=== PATIENT | female | born 2000 | race Caucasian/White ===

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

== ENCOUNTER 2020-01-08 07:30 | Day surgery (SDC) | payer OTHER ==
[~2020-01-08] VITALS: Ht 177.8 cm; Wt 99.8 kg
[~2020-01-08 07:30] MED LIST changes: +BACTRIM DS TAB1 EACH PO; +METHYLPHENIDATE54 MG PO; +NORCO 5-325 TA1 EACH PO
--- NOTE | 2020-01-08 09:53 | NUR ---
01/08/20 0953 Dione Love 0941- PT TO PACU IN SUPINE POSITION WITH ORAL AIRWAY IN PLACE. DOES NOT RESPOND TO VERBAL OR TACTILE STIMULI. BREATHING EASY AND UNLABORED. SPO2 >95% ON 6 L O2 VIA SIMPLE MASK. 0950- PT OPENS EYES AND SPITS OUT ORAL AIRWAY. BREATHING EASY AND UNLABORED. SPO2 >95% ON 6 L O2 VIA SIMPLE MASK. PT MOANING AND MUMBLING AND LAUGHING, BUT QUICKLY FALLS BACK TO SLEEP. VSS.
[2020-01-08] MEDS ORDERED: OXYCODON-ACETA1 EAC2 PO (09:58)
[2020-01-08] MEDS ORDERED: ACETAMINOPHEN500 MG PO (09:58)
[2020-01-08] MEDS ORDERED: IBUPROFEN600 MG PO (09:58)
--- NOTE | 2020-01-08 10:44 | NUR ---
ICED WATER GIVEN. CALL LIGHT WITHIN REACH. MOTHER AT THE BEDSIDE. PATIENT SIPS WATER AND TOLERATES THAT WELL.
--- NOTE | 2020-01-08 11:38 | NUR ---
APPLESAUCE GIVEN. PATIENT IS EATING AND DRINKING AND TOLERATING THAT WELL.
--- NOTE | 2020-01-08 12:36 | NUR ---
PATIENT IS UP TO THE BATHROOM. SHE IS STEADY ON HER FEET AND DENIES DIZZINESS. PATIENT REPORTS SUCCESSFUL VOID AND IS BACK IN HER ROOM. DISCHARGE INSTRUCTIONS GIVEN IN PRESENCE OF HER MOTHER AND BOTH VERBALIZE UNDERSTANDING. PATIENT IS GETTING DRESSED IN THE PRESENCE OF HER MOTHER.
--- NOTE | 2020-01-08 13:04 | NUR ---
LE 1245: PATIENT TRANSFERS HERSELF TO WHEELCHAIR AND THEN TO PERSONAL VEHICLE AND SHE TOLERATES THAT WELL.
--- NOTE | 2020-01-12 08:25 | OR ---
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 POSTOPERATIVE DIAGNOSIS: Pilonidal disease of the intermammary space (presternal space). PROCEDURES: 1. Excision of intermammary pilonidal disease. 2. Layered closure. ANESTHESIA: General, LMA; Hermila Moran CRNA and local 10 mL of 0.25% Marcaine with epinephrine. INDICATIONS: This 19-year-old obese, hirsute, white young woman has noted chronic recurrent inflammation, infection, and drainage between the breast. She is referred by Dr. Villarreal for further evaluation. She was seen in the emergency room on December 15 and December 16 for this. The problem has been going on for over a year. The area has had bleeding and draining purulent material. Examination shows pilonidal disease between the breasts in the intramammary crease. Though quite rare, this is a well known phenomenon. She is offered intermammary pilonidal excision. Primary closure versus delayed wound closure will be decided upon that operation. Risks of bleeding, infection, recurrent disease and so forth were all reviewed in detail. She understands and wished to proceed. FINDINGS: Typical pilonidal disease in an atypical position was noted -- the intermammary crease. Probing of a typical sinus with a lacrimal duct probe showed it did connect to the deep soft tissue. Wide and deep excision were undertaken through normal intramammary tissue. Primary closure was deemed most advisable. There was no sign of actual purulence. The tissue once excised was bivalved and examined and found not to have any actual nest of hairs, only chronic granulation tissue. DESCRIPTION OF PROCEDURE: The patient was brought to the operating room, given a general LMA type anesthetic. Preoperative antibiotic Ancef was given. Photographs were taken of the intermammary space. The area was clipped as she was rather hirsute in this area. A pilonidal sinus Electronically Signed By: WILTON LBEVINS MD 01/12/20 0825 PATIENT NAME: PRITESH GONZALEZ OPERATIVE REPORT DATE OF : 00 REPORT #: [id number] PHYSICIAN: WILTON BLEVINS MD PCP: ALVINO VILLARREAL MD REPORT IS CONFIDENTIAL AND NOT TO BE RELEASED WITHOUT AUTHORIZATION [facility] [address] [place] [address] Signed tract was probed with a lacrimal duct probe, confirming suspicion of pilonidal disease in the intermammary space. Elliptical incision of the disease was undertaken vertically oriented with a #15 blade. Electrocautery was used to further excise tissue through the subcutaneous tissue down to the presternal space. Complete excision was undertaken. The specimen was bivalved and examined, and although there was no sign of nest of hairs, there was chronic granulation tissue. Hemostasis was assured with electrocautery. The wound was then closed with interrupted 2-0 Vicryl in two layers including the deep dermis and a running subcuticular of the skin of 3-0 PDS. Steri-Strips were applied as was a silver sponge dressing. The patient tolerated procedure well. Blood loss was minimal. Wilton Blevins MD JM/MODL /[id number] cc: Alvino Villarreal MD Copies: ALVINO VILLARREAL MD ~ Electronically Signed By: WILTON BLEVINS MD 01/12/20 0825 PATIENT NAME: PRITESH GONZALEZ OPERATIVE REPORT DATE OF : 00 REPORT #: [id number] PHYSICIAN: WILTON BLEVINS MD PCP: ALVINO VILLARREAL MD REPORT IS CONFIDENTIAL AND NOT TO BE RELEASED WITHOUT AUTHORIZATION
--- NOTE | 2020-01-12 17:04 | PATH ---
[facility] [address] [place], [place] [address] Signed SPECIMEN(S): A INTERMAMMARY FOLD SPECIMEN SOURCE: A. INTERMAMMARY FOLD CLINICAL HISTORY: Pilonidal disease, intermammary fold; pilonidal cystectomy, chest. FINAL PATHOLOGIC DIAGNOSIS: Intermammary fold, excision: - [place] skin and subcutaneous tissue with an intradermal follicle/epidermal inclusion cyst with associated mixed inflammation and focal slight foreign body type reaction. - Negative for atypical features. JVR:cml:C2NR MICROSCOPIC EXAMINATION: Histologic sections of all submitted blocks are examined by light microscopy. These findings, together with the gross examination, support the pathologic diagnosis. GROSS DESCRIPTION: The specimen, labeled "SHYAM, A.," and designated on the requisition "intermammary fold 'pilonidal disease'," is received in formalin and consists of a hernandez elliptical skin with deep subcutaneous tissue measuring 5.5 x 1.3 x 3.8 cm. The cutaneous surface contains a 2.7 x 1.0 cm ulceration measuring up to 0.3 cm to the nearest margin. The specimen is serially sectioned revealing a fatty subcutaneous surface with minimal clot or fibrous fragments. Airplane Cabin Attendant sections are submitted in cassettes (A1-A2). AT (under the direct supervision of a pathologist) The Gross Description was prepared using a voice recognition system. The report was reviewed for accuracy; however, sound-alike word errors, addition and/or deletions may occur. If there is any question about this report, please contact Client Services. PERFORMING LABORATORY: The technical component was performed by [facility] [address] (Hat Copyist: Kary Matthew MD; CLIA# [id number]). Professional interpretation was performed by [facility] PATIENT NAME: PRITESH GONZALEZ PATHOLOGY DATE OF : 00 REPORT #: [id number] PHYSICIAN: [facility] PCP: ALVINO VILLARREAL MD REPORT IS CONFIDENTIAL AND NOT TO BE RELEASED WITHOUT AUTHORIZATION [address] [address] [place] [address] (Hat Copyist: Jose Angel De Leon M.D.). Diagnostician: Jose Angel De Leon MD Pathologist Electronically Signed 01/12/2020 Copies: ~ PATIENT NAME: PRITESH GONZALEZ PATHOLOGY DATE OF : 00 REPORT #: [id number] PHYSICIAN: [facility] PCP: ALVINO VILLARREAL MD REPORT IS CONFIDENTIAL AND NOT TO BE RELEASED WITHOUT AUTHORIZATION
== END 2020-01-08 12:45 | disposition home or self-care (01) ==
LOC: DS 07:30
PROVIDERS: Surgery
PROC: 0JB90ZZ Excision of Buttock Subcutaneous Tissue and Fascia, Open Approach (ICD-10-PCS; principal; 2020-01-08 08:15)
DX: L98.8 Other specified disorders of the skin and subcutaneous tissue (principal); J45.909 Unspecified asthma, uncomplicated; F90.9 Attention-deficit hyperactivity disorder, unspecified type; E66.01 Morbid (severe) obesity due to excess calories; Z68.31 Body mass index [BMI] 31.0-31.9, adult; Z79.899 Other long term (current) drug therapy
CPT/HCPCS: 00400; J0595; J0690; J1100; J1644; J1885; J2001; J2250; J2405; J2704; J7121

== ENCOUNTER 2020-02-10 18:20 | Emergency (ER) | payer OTHER ==
[~2020-02-10] VITALS: Ht 177.8 cm; Wt 99.8 kg
[~2020-02-10 18:20] MED LIST changes: +ACETAMINOPHEN500 MG PO; +IBUPROFEN600 MG PO; +OXYCODON-ACETA1 EAC2 PO
--- OUTSIDE RECORDS SUMMARY | 2020-02-10 18:22 | XMS ---
PreManage Notification: PRITESH GONZALEZ Security Stone [employer] Sawyer Events No recent Security Events currently on file CRITERIA MET - PDMP CARE PROVIDERS ALVINO VILLARREAL BILL Pediatrics 12/18/2019-Current PHONE: [phone] Sebastian has no Care Guidelines for this patient. EJennifer VISIT COUNT (12 MO.) [address] [place] [address] SARAH [place]leon TOTAL 5 NOTE: Visits indicate total known visits. ED/UCC VISIT TRACKING (12 MO.) 02/10/2020 18:20 [facility] [place] TYPE: Emergency COMPLAINT: - ABDOMENAL PAIN 12/17/2019 11:43 [facility] [place] TYPE: Emergency COMPLAINT: - SKIN ISSUE ON CHEST DIAGNOSES: - Other follicular cysts of the skin and subcutaneous tissue - Follicular cyst of the skin and subcutaneous tissue, unspecif 12/16/2019 16:47 [facility] [place] TYPE: Emergency COMPLAINT: - POSSIBLE CYST DIAGNOSES: - Pyothorax without fistula - Local infection of the skin and subcutaneous tissue, unspecif 10/30/2019 13:27 [facility] [place] TYPE: Emergency DIAGNOSES: - Heat exhaustion, unspecified, initial encounter - HEAT STROKE 06/19/2019 07:45 [facility] [place] TYPE: Emergency COMPLAINT: - SHOULDER INJURY DIAGNOSES: - Pain in left shoulder INPATIENT VISIT TRACKING (12 MO.) No inpatient visits to display in this time frame [email or web address]
[2020-02-10] MEDS ORDERED: PROTONIX40 MG PO (20:21)
== END 2020-02-10 20:32 | disposition home or self-care (01) ==
LOC: ED 18:20
DX: R10.13 Epigastric pain (principal); R10.10 Upper abdominal pain, unspecified; Z79.899 Other long term (current) drug therapy
CPT/HCPCS: 80053; 81001; 83690; 83735; 84703; 85025; 99284

== ENCOUNTER 2020-02-16 14:39 | Emergency (ER) | payer OTHER ==
[~2020-02-16] VITALS: Ht 177.8 cm; Wt 99.8 kg
--- OUTSIDE RECORDS SUMMARY | ~2020-02-16 | XMS | Clinical Summary ---
Demographics + + + | Address | [address] | | | [place] [address] | + + + | Home Phone | | + + + | Preferred Language | Unknown | + + + | Marital Status | Single | + + + | Lutheran Affiliation | Unknown | + + + | Race | White | + + + | Ethnic Group | Not or | + + + Author + + + | Author | [facility] | | | and [place] | + + + | Organization | [facility] | | | and [place] | + + + | Address | Unknown | + + + | Phone | Unavailable | + + + Care Team Providers + +------+ + | Care Screed Operator Name | Role | Phone | + +------+ + PCP | Unavailable | + +------+ + Allergies Not on File Medications Not on file Active Problems Not on file Social History + +-------+ +--------+------+ | Tobacco Use | Types | Packs/Day | Years | Date | | | | | Used | | + +-------+ +--------+------+ | Never Assessed | | | | | + +-------+ +--------+------+ + + + | Sex Assigned at | Date Recorded | | | | + + + | Not on file | | + + + Last Filed Vital Signs Not on file Plan of Treatment + + +-------+ + | Health Maintenance | Due Date | Last | Comments | | | | Done | | + + +-------+ + | Well Child Check | | | | | | 4 | | | + + +-------+ + | Vaccine: HPV (1 - | | | | | 2-dose series) | 2 | | | + + +-------+ + | Vaccine: | | | | | Dtap/Tdap/Td (1 - | 0 | | | | Tdap) | | | | + + +-------+ + | Vaccine: Influenza | | | | | (#1) | 0 | | | + + +-------+ + Results Not on filefrom Last 3 Months"
--- OUTSIDE RECORDS SUMMARY | ~2020-02-16 | XMS | Encounter Summary ---
Demographics + + + | Address | [address] | | | [place] [address] | + + + | Home Phone | | + + + | Preferred Language | Unknown | + + + | Marital Status | Single | + + + | Mormonism Affiliation | Unknown | + + + | Race | White | + + + | Ethnic Group | Not or | + + + Author + + + | Author | [facility] | + + + | Organization | [facility] | + + + | Address | Unknown | + + + | Phone | Unavailable | + + + Support + + + + + | Name | Relationship | Address | Phone | + + + + + | Nu Greer | ECON | [address] | | | | | [place] | | | | | [address] | | + + + + + | Reid Greer | ECON | Unknown | | + + + + + Care Team Providers + +------+ + | Care Radio Technician Name | Role | Phone | + [...] | | Cardiology at | MD [address] [facility] | | | | | Chance | [facility] | | | | | [facility] | [place], [place] | | | | | [address] | [address] | | | | | Chance | [phone] | | | | | [facility] | | | | | | 7th Floor [place], | | | | | | [place] [address] | | | | | | [phone] | | | +--------+ + + + [...] PE letter faxed to school: Brittnee Alejo [phone] elephone Encounter - Katie Schulz - 05/18/2015 1:32 PM PSTSchool needs to know if there are any activity restric tions before patient can play basketball. Mom states she has no activity restrictions. Katrina zhao send a letter to verify this. Fax to school: Brittnee Alejo [phone] signed by Katie Schulz at 05/18/2015 1 :34 PM PSTdocumented in this encounter Plan of Treatment Not on filedocumented as of this encounter Visit Diagnoses Not on filedocumented in this encounter"
--- OUTSIDE RECORDS SUMMARY | ~2020-02-16 | XMS | Clinical Summary ---
Demographics + + + | Address | [address] | | | [place] [address] | + + + | Home Phone [...] [place] | | | | | [address] | | + + + + + | Reid Greer | ECON | Unknown | + | + + + + + Care Team Providers + +------+ + | Care Hr Coordinator Name | Role | Phone | + +------+ + | Olive Sofia MD | PCP | | + +------+ + Source Comments RITA is fully live on both [facility] and [facility] InPatient.[facility] Allergies Not on File Medications + + [...] | [employer] | FIRST | [id number] | Effect | | | PPO | [...] | 1976 | [phone] | [place] [address] | | | jesus | | | 5 (Home) | | + +--------+ +--------+ + +
--- OUTSIDE RECORDS SUMMARY | ~2020-02-16 | XMS | Encounter Summary ---
Demographics + + + | Address | [address] | | | [place] [address] | + + + | Home Phone | | + + + | Preferred Language | Unknown | + + + | Marital Status | Single | + + + | Jain Affiliation | Unknown | + + + | Race | White | + + + | Ethnic Group | Not or | + + + Author + + + | Author | [facility] | | | and [place] | + + + | Organization | [facility] | | | and [place] | + + + | Address | Unknown | + + + | Phone | Unavailable | + + + Care Team Providers + +------+ + | Care Studio Sales Associate Name | Role | Phone | + +------+ + PCP | Unavailable | + +------+ + Encounter Details +--------+ + + + + | Date | Type | Department | Care Team | Description | +--------+ + + + + | 08/04/ | Hospital | [facility] | Trent Nazario | | | 2015 - | Encounter | HOSPITAL THERAPY | MD [address] | | | | | [address] | [facility] | | | 09/03/ | | [place], [place] | [place] [address] | | | 2014 | | [address] | [phone] | | | | | [phone] | | | +--------+ + + + [...] TREATMENT: Patient approved with authorization from insurance [facility] 09/03/2014: however, the patient moved to [place], and will seek medical services at that location. No progress report in 1 physical therapy session. PLAN: Discharge from physical therapy treatment. The patient moved to [place], and will [place] [facility] there. Thank you for this [...] lumbar and coccyx pain. Rate pain 0-1/10. senior care accomplished in 12 weeks: Patient to return [...]
--- OUTSIDE RECORDS SUMMARY | ~2020-02-16 | XMS | Encounter Summary ---
Demographics + + + | Address | [address] | | | [place] [address] | + + + | Home Phone | | + + + | Preferred Language | Unknown | + + + | Marital Status | Single | + + + | Latter-Day Affiliation | Unknown | + + + | Race | White | + + + | Ethnic Group | Not or | + + + Author + + + | Author | [facility] | + + + | Organization | [facility] | + + + | Address | Unknown | + + + | Phone | Unavailable | + + + Support + + + + + | Name | Relationship | Address | Phone | + + + + + | Nu Greer | ECON | [address] | | | | | [place] | | | | | [address] | | + + + + + | Reid Greer | ECON | Unknown | | + + + + + Care Team Providers + +------+ + | Care Power Reactor Operator Name | Role | Phone | [...] | | | | | unspecified | PEST CONTROL WORKER [facility]PER PEDS | [address] | | | | | Syncope | SPECIALISTS | [address] | | | | | and collapse | OF [place] | Chance | | | | | | [address] | Children's | | | | | | [address] | | | | | | [place], | Floor | | | | | | [place] [address] | [place], [place] | | | | | | Phone: | [address] | | | | | | [phone] | Phone: | | | | | | Fax: | [phone] | | | | | | [phone] | Fax: | | | | | | | [phone] | +--------+--------+ + + + + Encounter Details +--------+---------+ + + + | Date | Type | Department | Care Team | Description | +--------+---------+ + + + | 04/12/ | Office | Pediatric | Wanda Perez, | Vasovagal syncope | | 2015 | Visit | Cardiology at | [address] | (Primary Dx) | | | | [place] | [facility] | | | | | [facility] | [place], [place] | | | | | [address] | [address] | | | | | Chance | [phone] | | | | | [facility] | | | | | | [address] [facility], | | | | | | [place] [address] | | | | | | [phone] | | | +--------+---------+ + + + [...] "Orthostatic Hypotension: Care Instructions", log into your CineMallTec LLChart acc ount at [email or web address]. You can enter V984 in the Stop Being Watched Library" search box . Not on CineMallTec LLChart? Review the CineMallTec LLChart section of your After Visit Summary for directions on ho w to sign up. 6740-6080 [employer]. Care instructions adapted under license by [facility]. This care instruction is for use with your licensed healthcar e professional. If you have questions about a medical condition or this instruction, always ask your healthcare professional. [employer] disclaims any warranty or liabili ty for your use of this information. Content Version: [id number]; Current as of: July 03, 2014 documented in this encounter Progress Notes Wanda Perez MD - 04/12/2015 3:41 PM PSTFormatting of this note might be different f rom the original. Patient name: El Fairbanks Date of : 2000 [facility] 04/12/2015 El Fairbanks is a 14 year 4 month female who was seen in consultation on 04/12/20 15 in the pediatric cardiology clinic at [facility]. She was referred b Marita Cohen for the evaluation of syncope. She [...] and discussed the diagnosis at length with e family I have not set up a return visit for El. Should she develop new cardiovascular signs or worsening symptoms, I would be happy to see her again in the future. Please feel free to contact me with any questions regarding El's visit. MD Wanda Felix MD PEDIATRIC CARDIOLOGY AT [address] Mailcode: [address] [address] I spent 45 minutes, face to face, with the patient and their family, more than 50% of which was counseling and coordination of care. We discussed Prognosis and risks of the condition. Level of Service: New patient 45min face to face, [id number] documented in this encounter Plan of Treatment Not on filedocumented as of this encounter Visit Diagnoses + + | Diagnosis | + + | Vasovagal syncope - Primary Syncope and collapse | + + documented in this encounter
--- OUTSIDE RECORDS SUMMARY | ~2020-02-16 | XMS ---
Demographics + + + | Address | [address] | | | [place] [address] | + + + | Home Phone | | + + + | Preferred Language | Unknown | + + + | Marital Status | Never | + + + | Adventist Affiliation | Unknown | + + + | Race | White | + + + | Ethnic Group | Not or | + + + Author + + + | Author | [facility] | + + + | Organization | [facility] | + + + | Address | [address] | | | [place] [address] | + + + | Phone | | + + + Care Team Providers + + + + | Care Trial Management Associate Name | Role | Phone | + + + + | Olive Sofia PCP | | + + + + Unavailable | Unavailable | + + + + | [place] Olive L | PreferredProvider | | + + + [...] + + | Concerta 36 mg | 01/27/2020 | 02/26/2020 | take 2 tablets | | | oral tablet | | [...] 10/24/2016 | + +--------+ + | Sleep disorder | Active | 10/24/2016 | + +--------+ [...] | | e | | +-----+-----+-----+-----+-----+-----+-----+-----+-----+----+-----+-----+-----+-----+ | 9/1 | 11: | 110 | 70 | 89 | 20 | 97 | 246 | 69 | | 36. | 2.3 | 97. | 97 | | 5/2 | 41: | | mm[ | {be | rpm | F | | in | | 327 | 307 | 7 % | % | | 020 | 00 | mm[ | Hg] | ats | | | lbs | | | 5 | m2 | | | | | AM | Hg] | | }/m | | | | | | kg/ | | | | | | | | | in | | | | | | m2 | | | | +-----+-----+-----+-----+-----+-----+-----+-----+-----+----+-----+-----+-----+-----+ | 7/2 | 11: | 120 | 70 | 76 | 20 | 97. | 251 | 69. | | 36. | 2.3 | 97. | 97 | | 0/2 | 26: | | mm[ | {be | rpm | 9 F | | 25 | | 80 | 6 | 9 % | % | | [...] | | | | | +-----+-----+-----+-----+-----+-----+-----+-----+-----+----+-----+-----+-----+-----+ | 1/1 [...] m2 | | | | +-----+-----+-----+-----+-----+-----+-----+-----+-----+----+-----+-----+-----+-----+ | /2 | 8:5 | 98 | 60 | [...] | + + + + | In college | | - Eligio 01/27/2020 | + + + + | Parents | | | + + + + | Lives With | | mom (Nu), step-dad | | | | (Gurdeep), sisters (Sanketa and | | | | Jaret) | + + + + History of Procedures + + + + | Date Ordered | Description | Order Status | + + + + | 12/01/2019 12:00 AM | Meningococcal B (VFC) | Reviewed | + + + + | 12/01/2019 12:00 AM | CULTR BACTERIA EXCEPT BLOOD | Reviewed | + + + + | 01/27/2020 12:00 AM | INFLUENZA VIRUS VAC | Reviewed | | | QUADRIVALENT LIVE | | | | INTRANASAL | | + + + + | [...] | | ANTIBODY 12.82 VERA AB 6.36 SM/PLANTING MATERIAL UNLOADER AB | | | 4.42 SJOGRENS A [...] | | | 20 | | | 2001 | Enter | [...] | | | 50 | | | 2002 | Enter | [...] | | | 999 | | | 2002 | Enter | [...] | | | 83 | | | 2003 | Enter | | Enter | | [...] | 07/04/ | | 141 | | shot | /2003 | Enter | | Enter | | Enter | Enter | 2011 | 001 | | | | | ed | | ed | | ed | ed | | | | +-------+-------+-------+------+-------+-------+-------+-------+-------+-------+-----+ | DTaP | 12/28/ | Not | NE | Not | | Not | Not | 0 | | 20 | | | 2006 | Enter | | Enter | | [...] TRACE | [id number] | muscu | | | 2011 | | | | [...] | 03/04 | | 141 | | shot | | i | | ne > | AB | muscu | Delto | | 012 | | | | | paste | | 3 | [...] 02/07/ | 12/06/ | 141 | | shot | 2012 | i | | ne > | AB | muscu | | 2012 | 2012 | | | | | paste | | 3 | [...] 0 | | 83 | | | 2006 | Enter | | Enter | | [...] 820 | taneo | | 014 | 2009 | | | | | Co., | | | [id number] | us | Thigh | | | | | | | Inc. | | | 038 | | | | | | +-------+-------+-------+------+-------+-------+-------+-------+-------+-------+-----+ | Flu | | sanof | PMC | Fluzo | [id number] | Intra | Right | | | 150 | | shot | 016 | i | | ne | AB | muscu | | 016 | 015 | | | | | paste | | Quadr | [...] | Intra | Right | 04/11 | | 150 | | shot | /2017 | i | | ne | AA | muscu | Arm | /2017 | 001 | | | | | paste | | Quadr | | lar | | | | | | | | ur | | ivale | | | | | | | | | | | | nt | | | | | | | +-------+-------+-------+------+-------+-------+-------+-------+-------+-------+-----+ | Trume | 11/30/ | Pfize | PFR | Trume | [id number] | Intra | Right | 11/30/ | | 162 | | benedict | 2020 | r, | | benedict | 0 | muscu | | 2019 | 001 | | | MenB | | Inc. | | | | lar | Delto | | | | | | | | | | | | id | | | | +-------+-------+-------+------+-------+-------+-------+-------+-------+-------+-----+ | FluMi | 01/26/ | Medim | MED | Flumi | [id number] | Intra | Not | 01/26/ | | 149 | | st | 2020 | mune, | | st | 1 | nasal | Enter | 2020 | 015 | | | | | Inc. | | quadr | | | ed | | | | | | | | | ivale | | | | | | | | | | | | nt | | | | | | | +-------+-------+-------+------+-------+-------+-------+-------+-------+-------+-----+ History of [...] + + + | HPV (Gardisil) | Mar 04 2012 4:29PM | | [...] | + + + + | Sleep disorder | 10/24/2016 | | + + + [...] + + + | HPV (Gardisil) | Nov 17 2013 11:12AM | | [...] + + + + | Syncope | Feb 10 2015 2:16PM | | + + + + | Influenza 3YR & UP | b 2015 2:22PM | | + + + + | Anxiety Disorder | Feb 2015 2:22PM | | + + + + | Sleep disorder, unspecified | Jun 17 2015 2:22PM | | + + + + | Attention Deficit Disorder, | Feb 2015 2:22PM | | | Inattentive Type [...] | | + + + + | Hesham | Dec 01 2019 11:20AM | | + + + + | Attention Deficit Disorder, | Dec 01 2019 11:20AM | | | Inattentive Type | | | + + + + | Abscess of chest wall | Dec 01 2019 11:20AM | | + + + + | Influenza, Nasal | Jan 27 2020 11:23AM | | + + + + | Attention Deficit Disorder, | Jan 27 2020 11:23AM | | | Inattentive Type | | | + + + + | Pilonidal cyst of chest | Jan 27 2020 11:23AM | | | wall, S/P surgical removal | | | + + + + Payers [...] + | | [employer] | EOCCO | [id number] | [id number] | | N/A | | | | | | | | | | | Health/ohp | | | | | | + + + + + +---------+ + | | Dmap | Dmap | | [id number] | | N/A | + + + + + +---------+ + | | Health | Health | | [id number] | | N/A | | | Comp | Comp 1 | | | | | + + + + + +---------+ + | | Blue | BLUE CROSS | | [id number] | | N/A | | | Cross | BLUE CARD | | 40 | | | | | Blue | | | | | | | | Shield | | | | | | + + + + + +---------+ + | | GEHA AETNA | GEHA AETNA | | [id number] | | N/A | + + + + + +---------+ + History of Encounters + + + + | Visit Date | Visit Type | Provider | + + + + | 01/27/2020 | Consult | Olive Sofia MD | + + + + | 12/01/2019 [...] | 11/20/2017 | Acute Illness | Katharine MercerLuis M BURKETT | + + + + | [...] + + + + | 03/17/2013 | Same Day Appt | | + + + + | 03/17/2013 | Same Day Appt | | + + + + | 03/17/2013 | Same Day Appt | | + + + + | 03/17/2013 | Same Day Appt | Olive Sofia MD | + + + + | 02/07/2013 | Consult | Olive Sofia MD | [...]
--- OUTSIDE RECORDS SUMMARY | ~2020-02-16 | XMS | Encounter Summary ---
Demographics + + + | Address | [address] | | | [place] [address] | + + + | Home Phone | | + + + | Preferred Language | Unknown | + + + | Marital Status | Single | + + + | Catholic Affiliation | Unknown | + + + | Race | White | + + + | Ethnic Group | Not or | + + + Author + + + | Author | [facility] | | | and [place] | + + + | Organization | [facility] | | | and [place] | + + + | Address | Unknown | + + + | Phone | Unavailable | + + + Care Team Providers + +------+ + | Care Cloud Consultant Name | Role | Phone | + +------+ + PCP | Unavailable | + +------+ + Encounter Details +--------+ + + + + | Date | Type | Department | Care Team | Description | +--------+ + + + + | 10/05/ | Hospital | [facility] | Hanna Ramires | | | 2012 | Encounter | HOSPITAL EMERGENCY | MD [address] | | | | | [address] | [address] | | | | | [address] [place], [place] | [place], [place] | | | | | [address] | [address] | | | | | [phone] | [phone] | | | | | | | [...]
--- OUTSIDE RECORDS SUMMARY | ~2020-02-16 | XMS | Encounter Summary ---
Demographics + + + | Address | [address] | | | [place] [address] | + + + | Home Phone [...] | Nu Greer | ECON | [address] | | | | | [place] | | | | | [address] | | + + + + + | Reid Greer | ECON | Unknown | | + + + + + Care Team Providers + +------+ + | Care Lace Stripper Name | Role | Phone | + [...] SPECIALISTS OF | | | | | [facility] | [place] [address] | | | | | [address] | DARSHAN BRADSHAW | | | | | Chance | [place] [address] | | | | | [facility] | [phone] | | | | | [facility] Floor [place], | | | | | | [place] [address] | | | | | | [phone] | | | +--------+ + + + [...]
--- OUTSIDE RECORDS SUMMARY | ~2020-02-16 | XMS ---
Demographics + + + | Address | [address] | | | [place] [address] | + + + | Home Phone | | + + + | Preferred Language | Unknown | + + + | Marital Status | Never | + + + | Alevism Affiliation | Unknown | + + + | Race | White | + + + | Ethnic Group | Not or | + + + Author + + + | Author | [facility] | + + + | Organization | [facility] | + + + | Address | [address] | | | [place] [address] | + + + | Phone | | + + + Care Team Providers + + + + | Care Travel Sales Consultant Name | Role | Phone | [...] of Treatment + + + + + + | Planned | Comments | Planned Date | Planned Time | Plan/Goal | | Activity | | | | | + + + + + + | QUAD FLUMIST | | 01/27/2020 | 12:00 AM | | | (P) | | | | | + + + + + + | ADMIN ONE | | 01/27/2020 | 12:00 AM | | | VACCINE | | | | | + + + + + + Medications +--------+ | Active | +--------+ + [...] | | e | | +-----+-----+-----+-----+-----+-----+-----+-----+-----+----+-----+-----+-----+-----+ | 9/ | 11: | 110 | 70 | [...] m2 | | | | +-----+-----+-----+-----+-----+-----+-----+-----+-----+----+-----+-----+-----+-----+ | 7/ | 11: | 120 | 70 | [...] + | In college | | - [employer] 01/27/2020 | + + + + | [...] | | ANTIBODY 12.82 VERA AB 6.36 SM/SEISMIC COMPUTER AB | | | 4.42 SJOGRENS A [...] | 49 | muscu | Delto | /2011 | 2011 | | | [...] 87 | muscu | | 2012 | | | | | [...] | | 150 | | shot | | i | | ne | AA | muscu | Arm | | 001 | | | | | [...] | | + + + + | Ankitra 11 & UP | Mar 04 2012 [...] + | Influenza 3YR & UP | Jun 17 2015 2:22PM | | + + + + | Anxiety Disorder | Jun 17 2015 2:22PM | | + + + + | Sleep disorder, unspecified | Jun 17 2015 2:22PM | | + + + + | Attention Deficit Disorder, | Jun 17 2015 2:22PM | | | Inattentive Type | | | + + + + | Attention Deficit Disorder, | Apr 2015 8:57AM | | | Inattentive Type [...] | | + + + + | Andriynba | Dec 01 2019 11:20AM | | [...] + | | [employer] | EOCCO | [id number] | [id number] | | N/A | | | | | | | | | | | Health/ohp | | | | | | + + + + + +---------+ + | | Dmap | Dmap | | [id number] | | N/A | + + + + + +---------+ + | | Health | Health | | [id number] | | N/A | | | Comp | Comp 1 | | | | | + + + + + +---------+ + | | Blue | BLUE CROSS | | [id number] | | N/A | | | Cross | BLUE CARD | | 40 | | | | | Blue | | | | | | | | Shield | | | | | | + + + + + +---------+ + | | GEHA AETNA | GEHA AETNA | | [id number] | | N/A | + + + [...] + | 02/05/2018 | Consult | Leesa MACIASP | + + + + | 01/10/2018 [...]
[~2020-02-16 14:39] MED LIST changes: +PROTONIX40 MG PO
--- OUTSIDE RECORDS SUMMARY | 2020-02-16 14:42 | XMS ---
PreManage Notification: PRITESH GONZALEZ Security Hazardous Waste Management Specialist Events No recent Security Events currently on file CRITERIA MET - [facility] - 2 Visits in 30 Days CARE PROVIDERS ALVINO VILLARREAL Pediatrics 12/18/2019-Current PHONE: [phone] Sebastian has no Care Guidelines for this patient. Trisha VISIT COUNT (12 MO.) [address] TOTAL 6 NOTE: Visits indicate total known visits. ED/UCC VISIT TRACKING (12 MO.) 02/16/2020 14:40 [facility] [place] TYPE: Emergency COMPLAINT: - POSSIBLE ABSCESS/PAIN ON CHEST 02/10/2020 18:20 [facility] [place] TYPE: Emergency COMPLAINT: - ABDOMENAL PAIN DIAGNOSES: - Other intermediate (current) drug therapy - Epigastric pain - Upper abdominal pain, unspecified 12/17/2019 11:43 [facility] [place] TYPE: Emergency COMPLAINT: - SKIN ISSUE ON CHEST DIAGNOSES: - Other follicular cysts of the skin and subcutaneous tissue - Follicular cyst of the skin and subcutaneous tissue, unspecif 12/16/2019 16:47 [facility] [place] TYPE: Emergency COMPLAINT: - POSSIBLE CYST DIAGNOSES: - Pyothorax without fistula - Local infection of the skin and subcutaneous tissue, unspecif 10/30/2019 13:27 [facility] [place] TYPE: Emergency DIAGNOSES: - Heat exhaustion, unspecified, initial encounter - HEAT STROKE 06/19/2019 07:45 [facility] [place] TYPE: Emergency COMPLAINT: - SHOULDER INJURY DIAGNOSES: - Pain in left shoulder INPATIENT VISIT TRACKING (12 MO.) No inpatient visits to display in this time frame [id number]
[2020-02-16] MEDS ORDERED: KEFLEX500 MG PO (15:44)
== END 2020-02-16 15:57 | disposition home or self-care (01) ==
LOC: ED 14:39
DX: T81.41XA Infection following a procedure, superficial incisional surgical site, initial encounter (principal); L08.9 Local infection of the skin and subcutaneous tissue, unspecified; Z79.899 Other long term (current) drug therapy
CPT/HCPCS: 99282

== ENCOUNTER 2020-02-18 19:11 | Emergency (ER) | payer OTHER ==
[~2020-02-18] VITALS: Ht 177.8 cm; Wt 99.8 kg
--- OUTSIDE RECORDS SUMMARY | ~2020-02-18 | XMS | Clinical Summary ---
Demographics + + + | Address | [address] | | | [place] [address] | + + + | Home Phone | | + + + | Preferred Language | Unknown | + + + | Marital Status | Single | + + + | Rastafarian Affiliation | Unknown | + + + | Race | White | + + + | Ethnic Group | Not or | + + + Author + + + | Author | [facility] | | | and [place] | + + + | Organization | [facility] | | | and [place] | + + + | Address | Unknown | + + + | Phone | Unavailable | + + + Care Team Providers + +------+ + | Care Plumbing Engineering Draftsperson Name | Role | Phone | + [...]
--- OUTSIDE RECORDS SUMMARY | ~2020-02-18 | XMS | Encounter Summary ---
Demographics + + + | Address | [address] | | | [place] [address] | + + + | Home Phone | | + + + | Preferred Language | Unknown | + + + | Marital Status | Single | + + + | Buddhism Affiliation | Unknown | + + + | Race | White | + + + | Ethnic Group | Not or | + + + Author + + + | Author | [facility] | + + + | Organization | [facility] | + + + | Address | Unknown | + + + | Phone | Unavailable | + + + Support + + + + + | Name | Relationship | Address | Phone | + + + + + | Nu Greer | ECON | [address] | | | | | [place] | | | | | [address] | | + + + + + | Reid Greer | ECON | Unknown | | + + + + + Care Team Providers + +------+ + | Care Statistical Typist Name | Role | Phone | + +------+ + | Olive Sofia MD | PCP | | + +------+ + Encounter Details +--------+ + + + + | Date | Type | Department | Care Team | Description | +--------+ + + + + | 05/18/ | Telephone | Pediatric | Perez, Wanda H, | | | 2016 | | Cardiology at | MD [address] [facility] | | | | | Chance | [facility] | | | | | [facility] | [place], [place] | | | | | [address] | [address] | | | | | Chance | [phone] | | | | | [facility] | | | | | | 7th Floor [place], | | | | | | [place] [address] | | | | | | [phone] | | | +--------+ + + + [...] + + documented as of this encounter Miscellaneous Notes Telephone Encounter - Cherelle Salinas RN - 05/19/2015 9:56 AM PSTFormatting of this note m ight be different from the original. PE letter faxed to school: Brittnee Alejo [phone] elephone Encounter - Katie Schulz - 05/18/2015 1:32 PM PSTSchool needs to know if there are any activity restric tions before patient can play basketball. Mom states she has no activity restrictions. Katrina zhao send a letter to verify this. Fax to school: Brittnee Alejo [phone] signed by Katie Schulz at 05/18/2015 1 :34 PM PSTdocumented in this encounter Plan of Treatment Not on filedocumented as of this encounter Visit Diagnoses Not on filedocumented in this encounter"
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
--- OUTSIDE RECORDS SUMMARY | ~2020-02-18 | XMS | Clinical Summary ---
Demographics + + + | Address | [address] | | | [place] [address] | + + + | Home Phone | | + + + | Preferred Language | Unknown | + + + | Marital Status | Single | + + + | Mandaeism Affiliation | Unknown | + + + [...] [place] | | | | | [address] | | + + + + + | Reid Greer | ECON | Unknown | + | + + + + + Care Team Providers + +------+ + | Care Bookkeeping Service Sales Agent Name | Role | Phone | + +------+ + | Olive Sofia MD | PCP | | + +------+ + Source Comments RITA is fully live on both [facility] and [facility] InPatient.[facility] Allergies Not on File Medications + + [...] + + + Last Filed Vital Signs + [...] + + Plan of Treatment + + +-------+ + | Health Maintenance | Due Date | Last | Comments | | | | Done | | + + +-------+ + | Influenza (Flu) | | | | | vaccination (#1) | 0 | | | + + +-------+ + | Pneumococcal | Aged Out | | No longer eligible based on patient's age | | vaccination | | | to complete this topic | + + +-------+ + Results Not [...] | [employer] | FIRST | [id number] | Effect | | | PPO | [...] Mother | [birth year] | [address] | | | al/Fam | | 1976 | [phone] | [place] [address] | | | jesus | | | 5 (Home) | | + +--------+ +--------+ + +
--- OUTSIDE RECORDS SUMMARY | ~2020-02-18 | XMS | Encounter Summary ---
Demographics + + + | Address | [address] | | | [place] [address] | + + + | Home Phone | | + + + | Preferred Language | Unknown | + + + | Marital Status | Single | + + + | Latter Day Affiliation | Unknown | + + + [...] | Nu Greer | ECON | [address] | | | | | [place] | | | | | [address] | | + + + + + | Reid Greer | ECON | Unknown | | + + + + + Care Team Providers + +------+ + | Care Cuff Setter Lockstitch Name | Role | Phone | + [...] | | | | | [address] | [place] | | | | | Chance | [place] [address] | | | | | [facility] | [phone] | | | | | [facility] Floor [place], | | | | | | [place] [address] | | | | | | [phone] | | | +--------+ + + + [...]
--- OUTSIDE RECORDS SUMMARY | ~2020-02-18 | XMS | Encounter Summary ---
Demographics + + + | Address | [address] | | | [place] [address] | + + + | Home Phone | | + + + | Preferred Language | Unknown | + + + | Marital Status | Single | + + + | Temple Affiliation | Unknown | + + + | Race | White | + + + | Ethnic Group | Not or | + + + Author + + + | Author | [facility] | + + + | Organization | [facility] | + + + | Address | Unknown | + + + | Phone | Unavailable | + + + Support + + + + + | Name | Relationship | Address | Phone | + + + + + | Nu Greer | ECON | [address] | | | | | [place] | | | | | [address] | | + + + + + | Reid Greer | ECON | Unknown | | + + + + + Care Team Providers + +------+ + | Care Credit Risk Management Director Name | Role | Phone | + [...] | | | | | unspecified | FINANCIAL OPERATIONS CLERK PEDS | [address] | | | | | Syncope | SPECIALISTS | [address] | | | | | and collapse | OF [place] | [place] | | | | | | [address] | Children's | | | | | | [address] | | | | | | [place], | Floor | | | | | | [place] [address] | [place], [place] | | | | | | Phone: | [phone] | | | | | | [phone] | Phone: | | | | | | Fax: | [phone] | | | | | | [phone] | Fax: | | | | | | | [phone] | +--------+--------+ + + + + Encounter Details +--------+---------+ + + + | Date | Type | Department | Care Team | Description | +--------+---------+ + + + | 04/12/ | Office | Pediatric | Wanda Perez, | Vasovagal syncope | | 2015 | Visit | Cardiology at | [address] | (Primary Dx) | | | | [place] | [facility] | | | | | [facility] | [place], [place] | | | | | [address] | [address] | | | | | [place] | [phone] | | | | | [facility] | | | | | | [address] [facility], | | | | | | [place] [address] | | | | | | [phone] | | | +--------+---------+ + + + [...] "Orthostatic Hypotension: Care Instructions", log into your [employer] Home Securityhart acc ount at [email or web address]. You can enter [id number] in the [employer] Library" search box . Not on [employer] Security[employer]? Review the Simpli[employer] Home Securityhart section of your After Visit Summary for directions on ho w to sign up. [id number] [employer]. Care instructions adapted under license by [facility]. This care instruction is for use with your licensed healthcar e professional. If you have questions about a medical condition or this instruction, always ask your healthcare professional. [employer] disclaims any warranty or liabili ty for your use of this information. Content Version: 10.6.025788; Current as of: July 03, 2014 documented [...] at [facility]. She was referred b Marita Cohen for [...] MD Wanda Felix MD PEDIATRIC CARDIOLOGY AT [address] Mailcode: [address] [address] I spent 45 minutes, face to face, with the patient and their family, more than 50% of which was counseling and coordination of care. We discussed Prognosis and risks of the condition. Level of Service: New patient 45min face to face, [id number] documented in this encounter Plan of Treatment Not on filedocumented as of this encounter Visit Diagnoses + + | Diagnosis | + + | Vasovagal syncope - Primary Syncope and collapse | + + documented in this encounter
--- OUTSIDE RECORDS SUMMARY | ~2020-02-18 | XMS | Encounter Summary ---
Demographics + + + | Address | [address] | | | [place] [address] | + + + | Home Phone | | + + + | Preferred Language | Unknown | + + + | Marital Status | Single | + + + | Alevism Affiliation | Unknown | + + + | Race | White | + + + | Ethnic Group | Not or | + + + Author + + + | Author | [facility] | | | and [place] | + + + | Organization | [facility] | | | and [place] | + + + | Address | Unknown | + + + | Phone | Unavailable | + + + Care Team Providers + +------+ + | Care Ocean Biologist Name | Role | Phone | + +------+ + PCP | Unavailable | + +------+ + Encounter Details +--------+ + + + + | Date | Type | Department | Care Team | Description | +--------+ + + + + | 10/05/ | Hospital | [facility] | Hanna Ramires | | | 2012 | Encounter | HOSPITAL EMERGENCY | MD Marline [address] | | | | | [address] | | | | [address] [place], [place] | [place], [place] | | | | | [address] | [address] | | | | | [phone] | [phone] | | | | | | | [...]
--- OUTSIDE RECORDS SUMMARY | 2020-02-18 19:14 | XMS ---
PreManage Notification: PRITESH GONZALEZ Security Quarantine Inspector Events No recent Security Events currently on file CRITERIA MET - 6 ED Visits in 6 Months - [facility] - 2 Visits in 30 Days CARE PROVIDERS [facility] 12/18/2019-Current PHONE: [phone] Sebastian has no Care Guidelines for this patient. Trisha VISIT COUNT (12 MO.) [address] [place] [address] TOTAL 7 NOTE: Visits indicate total known visits. ED/UCC VISIT TRACKING (12 MO.) 02/18/2020 19:12 [facility] [place] TYPE: Emergency COMPLAINT: - HEAD PAIN 02/16/2020 14:40 [facility] [place] TYPE: Emergency COMPLAINT: - POSSIBLE ABSCESS/PAIN ON CHEST 02/10/2020 18:20 [facility] [place] TYPE: Emergency COMPLAINT: - ABDOMENAL PAIN DIAGNOSES: - Other usp (current) drug therapy - Epigastric pain - [...] skin and subcutaneous tissue, unspecif 10/30/2019 13:27 [facility] [place] TYPE: Emergency DIAGNOSES: - Heat exhaustion, unspecified, initial encounter - HEAT STROKE 06/19/2019 07:45 [facility] [place] TYPE: Emergency COMPLAINT: - SHOULDER INJURY DIAGNOSES: - Pain in left shoulder INPATIENT VISIT TRACKING (12 MO.) No inpatient visits to display in this time frame [email or web address]
== END 2020-02-18 21:52 | disposition home or self-care (01) ==
LOC: ED 19:11
DX: R51.9 Headache, unspecified (principal); G93.89 Other specified disorders of brain; Z79.899 Other long term (current) drug therapy
CPT/HCPCS: 62270; 70450; 80053; 82945; 84157; 85025; 85032; 89051; 99284-25; J1200; J1885; J2765; J7030

== ENCOUNTER 2020-04-20 13:18 | Emergency (ER) | payer OTHER ==
[~2020-04-20] VITALS: Ht 177.8 cm; Wt 99.8 kg
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
== END 2020-04-20 18:30 | disposition home or self-care (01) ==
LOC: ED 13:18
DX: R10.9 Unspecified abdominal pain (principal)
CPT/HCPCS: 74177; 80053; 81001; 83690; 84703; 85025; 99284-25; Q9967

== ENCOUNTER 2020-04-22 12:37 | Emergency (ER) | payer OTHER ==
[~2020-04-22] VITALS: Ht 177.8 cm; Wt 99.8 kg
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
== END 2020-04-22 14:11 | disposition home or self-care (01) ==
LOC: ED 12:37
DX: S80.01XA Contusion of right knee, initial encounter (principal); W55.12XA Struck by horse, initial encounter
CPT/HCPCS: 73560; 99283-25

== ENCOUNTER 2020-05-05 18:15 | Emergency (ER) | payer OTHER ==
[~2020-05-05] VITALS: Ht 152.4 cm; Wt 99.8 kg
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
[2020-05-05] MEDS ORDERED: CYCLOBENZAPRINE10 MG PO (19:32)
[2020-05-05] MEDS ORDERED: DICLOFENAC SODI75 MG PO (19:32)
== END 2020-05-05 20:08 | disposition home or self-care (01) ==
LOC: ED 18:15
DX: M54.5 Low back pain (principal)
CPT/HCPCS: 99283

== ENCOUNTER 2021-09-30 13:02 | Emergency (ER) | payer OTHER ==
[~2021-09-30] VITALS: Ht 177.8 cm; Wt 99.8 kg
[~2021-09-30 13:02] MED LIST changes: +CYCLOBENZAPRINE10 MG PO; +DICLOFENAC SODI75 MG PO
[2021-09-30] MEDS ORDERED: VITAMIN D21250 MCG PO (16:11)
[2021-09-30] MEDS ORDERED: NORGESTIMATE-E1 EACH PO (16:12)
[2021-09-30] MEDS ORDERED: SPIRONOLACTONE100 MG NG (16:12)
== END 2021-09-30 18:05 | disposition home or self-care (01) ==
LOC: ED 13:02
DX: H53.9 Unspecified visual disturbance (principal); Z79.899 Other long term (current) drug therapy
CPT/HCPCS: 70450; 99284-25

== ENCOUNTER 2022-04-09 10:09 | Emergency (ER) | payer OTHER ==
[~2022-04-09] VITALS: Ht 177.8 cm; Wt 124.7 kg
[~2022-04-09 10:09] MED LIST changes: +NORGESTIMATE-E1 EACH PO; +SPIRONOLACTONE100 MG NG; +VITAMIN D21250 MCG PO
[2022-04-09] MEDS ORDERED: ONDANSETRON ODT4 MG PO (18:22)
== END 2022-04-09 18:36 | disposition home or self-care (01) ==
LOC: ED 10:09
DX: J10.1 Influenza due to other identified influenza virus with other respiratory manifestations (principal); Z20.822 Contact with and (suspected) exposure to COVID-19
CPT/HCPCS: 87502; 99283; A9270; U0003

== ENCOUNTER 2023-10-22 21:10 | Emergency (ER) | payer OTHER ==
[~2023-10-22] VITALS: Ht 177.8 cm; Wt 116.0 kg
[~2023-10-22 21:10] MED LIST changes: +ONDANSETRON ODT4 MG PO
[2023-10-22] MEDS ORDERED: ACETAMINOPHEN/CAFFEINE/BUTALB 1 TAB TABLET PO ONE (22:00)
[2023-10-22] MEDS ORDERED: LACTATED RINGER'S 1,000 ML IV ONE (22:15)
[2023-10-22] MEDS ORDERED: ACETAZOLAMIDE125 MG (22:34)
[2023-10-23] MEDS ORDERED: BUTALB-ACETAMI1 EAC2 PO (00:47)
[2023-10-23 01:23] VITALS: BP 112/48
== END 2023-10-23 01:40 | disposition home or self-care (01) ==
LOC: ED 21:10
DX: G97.1 Other reaction to spinal and lumbar puncture (principal); Y84.4 Aspiration of fluid as the cause of abnormal reaction of the patient, or of later complication, without mention of misadventure at the time of the procedure; Z79.899 Other long term (current) drug therapy
CPT/HCPCS: 80053; 85025; A9270; J7121

== ENCOUNTER 2023-10-25 02:41 | Emergency (ER) | payer OTHER ==
[~2023-10-25] VITALS: Ht 177.8 cm; Wt 110.0 kg
[~2023-10-25 02:41] MED LIST changes: +ACETAZOLAMIDE125 MG; +BUTALB-ACETAMI1 EAC2 PO
[2023-10-25] MEDS ORDERED: acetaZOLAMIDE sodium 500 MG/5 ML VIAL IV ONE (03:00)
[2023-10-25] MEDS ORDERED: HYDROmorphone HCL 1 MG/ML SYR IV ONE (03:15)
[2023-10-25] MEDS ORDERED: droPERidol 5 MG/2 ML VIAL IV PRN (03:15)
[2023-10-25] MEDS ORDERED: ACETAZOLAMIDE250 MG PO (04:02)
[2023-10-25] MEDS ORDERED: HYDROCODONE BIT/ACETAMINOPHEN 5/325 MG 1 TAB HOME.PACK PO ONE (04:15)
[2023-10-25 04:27] VITALS: BP 108/66
== END 2023-10-25 04:29 | disposition home or self-care (01) ==
LOC: ED 02:41
DX: G96.810 Intracranial hypotension, unspecified (principal); Z79.818 Long term (current) use of other agents affecting estrogen receptors and estrogen levels
CPT/HCPCS: 96374; 96375; 99284-25; A9270; J1120; J1170; J1790